=== PATIENT | male | born 1960 | race Caucasian/White ===

== ENCOUNTER 2017-11-16 19:03 | Inpatient (IN) | payer OTHER ==
[~2017-11-16] VITALS: Ht 170.2 cm; Wt 95.3 kg
[2017-11-16] MEDS ORDERED: LISINOPRIL2.5 MG (19:27)
[2017-11-16] MEDS ORDERED: METFORMIN HCL500 MG (19:28)
[2017-11-16] MEDS ORDERED: FENOFIBRATE134 MG (19:28)
[2017-11-16] MEDS ORDERED: LIPITOR80 MG PO (19:28)
[2017-11-16] MEDS ORDERED: SYNTHROID50 MCG (19:29)
[2017-11-16] MEDS ORDERED: NEURONTIN300 MG (19:29)
[2017-11-19] MEDS ORDERED: ASA81 MG PO (13:01)
[2017-11-19] MEDS ORDERED: GUAIFENESI100 MG/52 PO (13:01)
[2017-11-19] MEDS ORDERED: XOPENEX0.63 MG/3 IH (13:01)
[2017-11-19] MEDS ORDERED: LISINOPRIL2.5 MG PO (13:01)
[2017-11-19] MEDS ORDERED: LIPITOR40 MG PO (13:01)
[2017-11-19] MEDS ORDERED: Coreg 3.125MG TABLET PO (13:01)
[2017-11-19] MEDS ORDERED: Glucophage PO (13:04)
== END 2017-11-19 14:28 | disposition home or self-care (01) | DRG 191 ==
LOC: ER 19:03 → MEDJ 11-17 09:17 → MEDI 11-17 09:17 → MEDJ 11-19 14:28
PROC: 4A033R1 Measurement of Arterial Saturation, Peripheral, Percutaneous Approach (ICD-10-PCS; principal; 2017-11-17)
PROC: 3E0F7GC Introduction of Other Therapeutic Substance into Respiratory Tract, Via Natural or Artificial Opening (ICD-10-PCS; 2017-11-17)
PROC: B246ZZZ Ultrasonography of Right and Left Heart (ICD-10-PCS; 2017-11-17)
PROC: 4A12X4Z Monitoring of Cardiac Electrical Activity, External Approach (ICD-10-PCS; 2017-11-17)
DX: J44.1 Chronic obstructive pulmonary disease with (acute) exacerbation (principal); I42.0 Dilated cardiomyopathy; I50.20 Unspecified systolic (congestive) heart failure; Z95.810 Presence of automatic (implantable) cardiac defibrillator; E11.9 Type 2 diabetes mellitus without complications; E78.4 Other hyperlipidemia; E03.8 Other specified hypothyroidism; I25.10 Atherosclerotic heart disease of native coronary artery without angina pectoris; R09.02 Hypoxemia; G47.33 Obstructive sleep apnea (adult) (pediatric); I11.0 Hypertensive heart disease with heart failure; Z98.61 Coronary angioplasty status

== ENCOUNTER 2018-01-12 09:45 | Outpatient (CLI) | payer OTHER ==
[~2018-01-12 09:45] MED LIST: ASA81 MG PO; Coreg 3.125MG TABLET PO; FENOFIBRATE134 MG; GUAIFENESI100 MG/52 PO; Glucophage PO; LIPITOR40 MG PO; LIPITOR80 MG PO; LISINOPRIL2.5 MG; LISINOPRIL2.5 MG PO; METFORMIN HCL500 MG; NEURONTIN300 MG; SYNTHROID50 MCG; XOPENEX0.63 MG/3 IH
== END 2018-01-12 15:31 | disposition home or self-care (01) ==
LOC: TOM 09:45
DX: M54.5 Low back pain (principal)